=== PATIENT | female | born 2000 | race Two or more races ===

== ENCOUNTER 2023-04-27 10:13 | Emergency (ER) | payer SELFPAY ==
[2023-04-27 10:51] VITALS: BP 110/71; PULSE 83; RESP 16; TEMP 98.4; BMI 23.0
[2023-04-27 11:04] LABS: BASO % 0.8 % (0-2.0); EOS % 3.2 % (0-4.5); HEMATOCRIT 41.4 % (32.4-45.2); HEMOGLOBIN 13.8 GM/dL (10.7-15.3); LYMPH % 24.5 % (8-40); MCH 29.7 pg (25.7-33.7); MCHC 33.3 g/dl (32.0-36.0); MEAN CELL VOLUME 89.1 fl (80-96); MEAN PLT VOLUME 9.3 fl (7.5-11.1); MONO % 5.8 % (3.8-10.2); NEUT % 65.7 % (42.8-82.8); PLATELET COUNT 251 10^3/uL (134-434); RBC 4.65 M/mm3 (3.60-5.2); RDW 12.9 % (11.6-15.6); WHITE BLOOD COUNT 6.5 K/mm3 (4.0-10.0)
[2023-04-27 11:30] LABS: URINE BILIRUBIN 1+ (NEGATIVE); URINE GLUCOSE (UA) NEGATIVE (NEGATIVE)
[2023-04-27 11:31] LABS: URINE PROTEIN 3+ (NEGATIVE); URINE UROBILINOGEN 0.2 mg/dL (0.2-1.0)
[2023-04-27 11:33] LABS: EPI CELLS 7.5 /uL (0-25.1); HYALINE CASTS 0.14 /uL (0-3.1); POTASSIUM 4.1 mmol/L (3.5-5.1); URINE RBC 2648.8 /uL (0-23.9); URINE WBC 9.6 /uL (0-25.8)
[2023-04-27 11:34] LABS: CALCIUM 8.9 mg/dL (8.5-10.1)
[2023-04-27 11:35] LABS: BLOOD UREA NITROGEN 13.5 mg/dL (7-18)
[2023-04-27 11:38] LABS: CREATININE 0.7 mg/dL (0.55-1.3)
== END 2023-04-27 13:01 | disposition home or self-care (01) ==
LOC: JERFT 10:13 → JER 10:13 → JERFT 13:01
DX: O03.9 Complete or unspecified spontaneous abortion without complication (principal); Z3A.01 Less than 8 weeks gestation of pregnancy
CPT/HCPCS: 36415; 76817-TC; 80048; 81003; 84702; 85025; 86850; 86900; 86901; 87086; 99284-25